=== PATIENT | male | born 1990 | race Caucasian/White ===

== ENCOUNTER 2025-05-09 16:46 | Emergency (ER) | payer OTHER, SELFPAY ==
[2025-05-09 16:47] VITALS: BP 178/114; PULSE 94; RESP 16; TEMP 36.8; O2SAT 99; BMI 38.5
[2025-05-09 16:50] VITALS: BP 167/115; PULSE 92; O2SAT 97
--- NOTE | 2025-05-09 17:23 | RAD_ITS ---
PROCEDURE: ELBOW MIN 3 VIEWS 05/09/2025 REASON FOR EXAM: TRAUMA TECHNIQUE: ELBOW MIN 3 VIEWS Laterality: FINDINGS: No evidence of acute fracture or dislocation. No elbow joint effusion. The joint spaces are maintained. RAD/Elbow min 3 Views IMPRESSION: No acute osseous abnormality. Reading Location: [id number]
--- NOTE | 2025-05-09 17:23 | RAD_ITS ---
PROCEDURE: LEFT ANKLE MIN 3 VIEWS 05/09/2025 REASON FOR EXAM: TRAUMA TECHNIQUE: LEFT ANKLE MIN 3 VIEWS COMPARISON: None. FINDINGS: No acute fracture or dislocation. Alignment is anatomic. Preserved joint spaces. No aggressive osseous lesion. No marked soft tissue swelling or radiopaque foreign body. RAD/Ankle min 3 Views IMPRESSION: No acute fracture or dislocation. Reading Location: [id number]
--- NOTE | 2025-05-09 17:25 | CT_ITS ---
PROCEDURE: BRAIN/HEAD WITHOUT CONTRAST; SPINE CERVICAL WITHOUT CONTRAS 05/09/2025 REASON FOR EXAM: TRAUMA TECHNIQUE: BRAIN/HEAD WITHOUT CONTRAST; SPINE CERVICAL WITHOUT CONTRAS Coronal and Sagittal reconstruction series were provided. One or more dose reduction techniques were used (e.g., Automated exposure control, adjustment of the mA and/or kV according to patient size, use of iterative reconstruction technique. RADIATION DOSE SUMMARY: CTDlvol: 44+ 28 mGy DLP: 779+ 579 mGycm FINDINGS: CT head: The ventricles are normal in size and midline in position. No evidence of acute hemorrhage or infarction. No extra-axial blood or fluid collections. Left maxillary and mild ethmoid sinus mucosal thickening. The mastoid air cells are clear. The calvarial vault and skull base are intact. CT cervical spine: No evidence of acute fracture or dislocation. Vertebral body heights are maintained. Mild discogenic degenerative changes of the visualized spine. Normal alignment. CT/Brain/Head without Contrast IMPRESSION: No acute intracranial abnormality. No evidence of cervical spine fracture. Mild spondylosis. Reading Location: [id number]
--- NOTE | 2025-05-09 17:25 | CT_ITS ---
PROCEDURE: BRAIN/HEAD WITHOUT CONTRAST; SPINE CERVICAL WITHOUT CONTRAS 05/09/2025 REASON FOR EXAM: TRAUMA TECHNIQUE: BRAIN/HEAD WITHOUT CONTRAST; SPINE CERVICAL WITHOUT CONTRAS Coronal and Sagittal reconstruction series were provided. One or more dose reduction techniques were used (e.g., Automated exposure control, adjustment of the mA and/or kV according to patient size, use of iterative reconstruction technique. RADIATION DOSE SUMMARY: CTDlvol: 44+ 28 mGy DLP: 779+ 579 mGycm FINDINGS: CT head: The ventricles are normal in size and midline in position. No evidence of acute hemorrhage or infarction. No extra-axial blood or fluid collections. Left maxillary and mild ethmoid sinus mucosal thickening. The mastoid air cells are clear. The calvarial vault and skull base are intact. CT cervical spine: No evidence of acute fracture or dislocation. Vertebral body heights are maintained. Mild discogenic degenerative changes of the visualized spine. Normal alignment. CT/Spine Cervical without Contras IMPRESSION: No acute intracranial abnormality. No evidence of cervical spine fracture. Mild spondylosis. Reading Location: [id number]
--- NOTE | 2025-05-09 17:30 | RAD_ITS ---
PROCEDURE: LEFT WRIST MIN 3 VIEWS 05/09/2025 REASON FOR EXAM: PAIN/INJURY TECHNIQUE: LEFT WRIST MIN 3 VIEWS COMPARISON: None. FINDINGS: There is a chronic appearing nonunited fracture of the scaphoid waist. No other acute fracture or dislocation is evident. Carpal alignment is maintained. Preserved joint spaces. Normal bone mineralization. Mild soft tissue swelling about the wrist. No radiopaque foreign body. RAD/Wrist min 3 Views IMPRESSION: Fracture of the scaphoid waist which appears to be chronic. No other acute fracture or dislocation. Soft tissue swelling about the wrist. Reading Location: [id number]
[2025-05-09 17:50] VITALS: BP 174/114; PULSE 91
[2025-05-09 18:00] VITALS: BP 174/114; PULSE 91
[2025-05-09 18:34] LABS: Hematocrit 42.1 % (40-54); Hemoglobin 14.2 g/dL (13.0-16.5); Immature Granulocytes Count 0.080 X10^3/uL (0.0-0.0); Mean Corp Hgb Conc 33.7 g/dL (32-36); Mean Corpuscular Volume 84.4 fL (80-94); Mean Platelet Vol. 9.3 fl (6.2-12.0); NRBC Flagged by Analyzer 0 % (0-5); Platelet Count 256 K/mm3 (150-450); RBC Distribution Width CV 13.2 % (11.6-14.6); RBC Distribution Width SD 41.1 fl (35.1-43.9); Red Blood Count 4.99 M/mm3 (4.6-6.2); White Blood Count 13.2 K/mm3 (4.4-11.0)
--- NOTE | 2025-05-09 18:46 | EX.ED.DYSGE1 ---
HPI History of Present Illness Chief Complaint: Fall Narrative Narrative: Patient is a 35-year-old male with no known significant past medical history who presents to the emergency department chief complaint of left arm pain, headache, ankle pain. He states that earlier today around 8 AM he was on a ladder and notes that this was about 12 feet in the air when the ladder slid out from underneath him causing him to fall. He states that he hit the back of his head on a brick wall but states he did not pass out he is not any blood thinning medications. He states that his main concern is his left wrist pain. He states that he tried to take ibuprofen around 1:00 for his pain but states that this is coming back. Patient states that he ate lunch and has not had any vomiting. Patient states his last tetanus shot was approximately 10 years ago or longer he is not sure. PFSH PFSH Medical History no medical history Allergy/AdvReac Type Severity Reaction Status Date / Time No Known Allergies Allergy Verified 05/09/25 16:50 Family History no significant family his Surgical History Hx of tonsillectomy Social History Smoking Status: Never smoker ROS ROS ED ROS Narrative Constitutional: Complains of headache as noted above denies any lightness dizziness fevers or chills Eyes: Denies double vision Cardiovascular: Denies chest pain Respiratory: Denies coughing wheezing shortness of breath Abdomen: Denies abdominal pain nausea vomit diarrhea : Denies any urinary symptoms Neurological: Denies any numbness, weeks, tingling Musculoskeletal: Complains of left wrist pain, left ankle pain as noted above Skin: Complains of a scrape to the left forearm EXAM Physical Exam Narrative Exam Narrative: General: Patient was lying in bed rest comfortably did not appear to be in acute distress Head: Atraumatic, normocephalic Eyes, ears, nose: PERRL bilaterally, EOMI bilateral, no conjunctival injection noted no raccoon eyes no Howell sign no nasal septal hematomas noted bilaterally Neck: Soft, supple, trachea midline Cardiovascular: Regular rate and rhythm Respiratory: Clear to auscultation bilaterally Abdomen: Soft, nondistended, no tenderness to palpation Musculoskeletal: Patient has tenderness palpation of the left distal radius although bony prominences palpated joints taken through full range of motion no pain elicited, no tenderness palpation midline of the cervical, thoracolumbar spine no step-offs or deformities noted Extremities: +5/5 strength noted in the bilateral lower extremities, radial pulse +2/4 in the bilateral extremities Neurological: Patient follow commands knew he was at [facility] the year is 2024 Skin: Warm, dry, intact, patient has superficial abrasion noted to the volar aspect of his left forearm no active bleeding noted Const Vital Signs: 05/09/25 16:47 05/09/25 16:50 05/09/25 17:50 Temperature 98.3 F Temperature Source Oral Pulse Rate 94 92 91 Respiratory Rate 16 Respiratory Effort Respiratory Depth Respiratory Pattern Blood Pressure 178/114 H 167/115 H 174/114 H Blood Pressure Mean 135 132 134 Pulse Ox 99 97 Oxygen Delivery Method Room Air Room Air 05/09/25 18:00 05/09/25 18:54 05/09/25 19:00 Temperature Temperature Source Pulse Rate 91 94 Respiratory Rate Respiratory Effort Normal Non-Labored Respiratory Depth Normal Respiratory Pattern Normal Blood Pressure 174/114 H 165/108 H Blood Pressure Mean 134 127 Pulse Ox 100 Oxygen Delivery Method Room Air Room Air MDM MDM MDM Narrative Medical decision making narrative: Patient is a 35-year-old male who presented to the emergency department chief complaint of fall from approximately 12 feet earlier today around 8 AM. Patient had a workup started prior to my evaluation while in triage. On the differential diagnose includes but not limited to intracranial hemorrhage, cervical spine fracture, distal radius fracture, left ankle fracture or dislocation. Once the workup is obtained reviewed he will be reevaluated. Patient states that he does not want any thing for pain at this point in time. Patient CBC reviewed showed a white blood count of 13,000 is likely reactive, he was 14.2, plate count of 256. Patient sodium normal 139, potassium normal at 4.1, creatinine normal at 0.91. Patient AST and ALT are normal 35 and 41 respectively with a normal total bilirubin of 0.40. Patient lipase normal at 28. Patient's CT head and brain without contrast was reviewed and showed no acute intracranial abnormality. Patient CT cervical spine reviewed showed no evidence of cervical spine fracture mild spondylosis. Patient's x-ray of his ankle reviewed by myself by radiology showed no acute fracture or dislocation. Patient x-ray of his elbow reviewed by myself by radiology showed no acute fracture or dislocation. And patient's wrist x-ray reviewed by myself by radiology which showed a old scaphoid waist fracture. Clinically on exam he has no snuffbox tenderness either to support this old finding. No other fracture dislocations. Did discuss results with the patient he would like to go home at this point time he is advised to follow-up his doctor in outpatient and return with worsening symptoms or concerns. He is vies rotate Tylenol and ibuprofen [id number] and use muscle laxer as prescribed. He is advised to not operate anything out of the influence this medication. All question concerns answered he is discharged home in stable condition. Lab Data Labs: Laboratory Results - last 24 hr 05/09/25 18:25 WBC 13.2 H RBC 4.99 Hgb 14.2 Hct 42.1 MCV 84.4 MCH 28.5 MCHC 33.7 RDW Std Deviation 41.1 RDW Coeff of Janay 13.2 Plt Count 256 MPV 9.3 Immature Gran % (Auto) 0.600 Neut % (Auto) 70.5 H Lymph % (Auto) 19.5 Taney % (Auto) 8.1 Eos % (Auto) 0.8 Baso % (Auto) 0.5 Absolute Neuts (auto) 9.3 H Absolute Lymphs (auto) 2.57 Nucleated RBC % 0 Sodium 139 Potassium 4.1 Chloride 102 Carbon Dioxide 22.3 Anion Gap 15 BUN 23 H Creatinine 0.91 Estim Creat Clear Calc 140.99 Est GFR (MDRD) Non-Af 111 BUN/Creatinine Ratio 25.4 H Glucose 102 H Calcium 9.8 Total Bilirubin 0.40 AST 35 ALT 41 Alkaline Phosphatase 81 Total Protein 8.0 Albumin 4.7 Globulin 3.2 Albumin/Globulin Ratio 1.5 Lipase 28 Radiography Diagnostic Testing: Clinical Impression(s) from Imaging Studies Ankle X-Ray 05/09/25 17:23 IMPRESSION: No acute fracture or dislocation. Reading Location: [id number] Elbow X-Ray 05/09/25 17:23 IMPRESSION: No acute osseous abnormality. Reading Location: [id number] Brain CT 05/09/25 17:25 IMPRESSION: No acute intracranial abnormality. No evidence of cervical spine fracture. Mild spondylosis. Reading Location: [facility] Cervical Spine CT 05/09/25 17:25 IMPRESSION: No acute intracranial abnormality. No evidence of cervical spine fracture. Mild spondylosis. Reading Location: [facility] Wrist X-Ray 05/09/25 17:30 IMPRESSION: Fracture of the scaphoid waist which appears to be chronic. No other acute fracture or dislocation. Soft tissue swelling about the wrist. Reading Location: [facility] Discharge Plan Triage Chief Complaint: Fall ED Provider: To Rodriguez Dx/Rx/DC Orders Clinical Impression: Fall, Left wrist pain, Ankle pain, left Primary Care Provider: Care Physician,No Primary Referrals: Care Physician,No Primary [Primary Care Provider] - Jose Rodriguez MD [Med Staff - [employer]] - Activity Restrictions/Additional Instructions: Your CT scan of your head and your neck did not show acute findings your x-rays of your wrist, elbow, ankle did not show any acute broken bones. Rotate Tylenol and ibuprofen [id number] for mild to moderate pain when you do this can take something every 3 hours for pain max dose of Tylenol 24 hours 4000 mg max dose of ibuprofen in 24 hours 3200 mg. Use muscle relaxer as prescribed do not operate anything out of the influence this medication. Your blood pressure was elevated here in the emergency department this could be secondary to pain however you should keep a close eye on this and follow-up with a family doctor that you referred to about this. Return with worsening symptoms or any concerns Print Language: [place] Disposition Disposition: Home, Self Care
--- NOTE | 2025-05-09 18:53 | ED.RN ---
Called employer ([employer]) to see if testing is required. Employer stated that no questing is required.
[2025-05-09 19:00] VITALS: BP 165/108; PULSE 94; O2SAT 100
[2025-05-09 19:26] LABS: AST(SGOT) 35 U/L (<=37); Alanine Aminotransfer ALT/SGPT 41 U/L (<=46); Albumin, Serum 4.7 g/dL (3.5-5.0); Alkaline Phosphatase 81 U/L (40-129); Anion Gap 15 (5-15); BUN 23 mg/dL (4-19); BUN/Creat Ratio 25.4 RATIO (10-20); Calcium,Total 9.8 mg/dL (7.6-11.0); Carbon Dioxide 22.3 mmol/L (21.0-32.0); Chloride 102 mmol/L (98-108); Estimated Creatinine Clearance 140.99 ml/min (50-250); Globulin 3.2 g/dL (2.2-4.2); Glucose 102 mg/dL (70-99); Lipase 28 U/L (13-75); Potassium 4.1 mmol/L (3.3-5.1)
[2025-05-09 19:50] VITALS: BP 165/108; PULSE 94; RESP 16; TEMP 36.8; O2SAT 100
== END 2025-05-09 19:50 | disposition home or self-care (01) ==
PROVIDERS: Emergency Provider Emergency Medicine; Visit Provider Emergency Medicine
DX: M25.572 Pain in left ankle and joints of left foot (principal); M25.532 Pain in left wrist; W11.XXXA Fall on and from ladder, initial encounter; Y99.0 Civilian activity done for income or pay
CPT/HCPCS: 70450; 72125; 73080; 73110; 73610; 80053; 83690; 85025; 99284; A4216